=== PATIENT | male | born 1985 | race Caucasian/White ===

== ENCOUNTER 2020-12-27 08:27 | Emergency (ER) | payer OTHER, SELFPAY ==
[2020-12-27 08:34] VITALS: BP 154/100; PULSE 110; RESP 18; TEMP 36.6; O2SAT 97; BMI 38.7
--- NOTE | 2020-12-27 09:01 | ED.GENADULT ---
HPI - General Adult General Chief complaint: General Medical Stated complaint: medication refill Time Seen by Provider: 12/27/20 08:59 Source: patient Mode of arrival: ambulatory Limitations: no limitations History of Present Illness HPI narrative: 35-year-old on Suboxone here at a local sober house presents emergency department for refill of his Suboxone. He states he has not been the get for days. He denies cough fever chest pain nausea vomiting or diarrhea. Related Data Previous Rx's Medication Instructions Recorded buprenorphine 8 mg-naloxone 2 mg 1 film BUCCAL BID #5 ea 12/27/20 sublingual film (Suboxone) Allergies Allergy/AdvReac Type Severity Reaction Status Date / Time No Known Allergies Allergy Verified 12/27/20 09:17 Review of Systems Review of Systems: Review of systems: General: Patient denies any fever chills recent illness or falls Musculoskeletal: Denies back pain or body aches or other injuries HEENT: denies headache, runny nose, ear pain Respiratory: denies shortness of breath, cough Cardiovascular: no chest pain or palpitations : denies dysuria, frequency Abdomen: no nausea vomiting denies abdominal pain Extremities: no swelling, no pain Skin: no diaphoresis Yes all other systems are reviewed and are negative PMFSH Past Medical History Medical History (Updated 12/27/20 @ 09:29 by Cristian Ramírez DO) No known health problems Social History Social History Advance Directives: No Advance Directives Information Provided: No Physical Exam Vital Signs: Vital Signs: Last Vital Signs Temp 97.9 F 12/27/20 08:34 Pulse 110 H 12/27/20 08:34 Resp 18 12/27/20 08:34 BP 154/100 H 12/27/20 08:34 Pulse Ox 97 12/27/20 08:34 Body Mass Index 38.7 General: Well-appearing well-nourished in no signs of distress HEENT: Normocephalic atraumatic Neck: No signs of JVD, no masses no tenderness or lymphadenopathy Cardiovascular: Regular rate and rhythm Respiratory: Clear to auscultation bilaterally Abdomen: Soft nontender no masses. Extremities: Normal pedal pulses no signs of edema Skin: Dry warm no rashes Back: No tenderness full ROM Medical Decision Making MDM Narrative Medical decision making narrative: Will give him a dose of Suboxone here and sent home with 5 tabs. Discharge Plan Discharge Clinical Impression: Encounter for monitoring Suboxone maintenance therapy Patient Disposition: Home, Self-Care Additional Instructions: Please call to stab somebody to write for Suboxone. Prescriptions: New buprenorphine-naloxone [Suboxone] 8-2 mg film 1 film buccal BID Qty: 5 RF: 0
--- NOTE | 2020-12-27 09:37 | MHC.RECOVSUP ---
Recovery Support note: Patient is a 35 year old Vincentian speaking male who presented to [facility] ED requesting Suboxone. Patient reports his clinic is in fall and that he was supposed to get a prescription sent on Monday however it did not happen. Patient reports he has been in treatment for the past 4 months and has not been able to see his provider in person. Patient reports he currently resides at the [facility]. Patient was medicated with Suboxone while in the ED and discharged with a bridge script. Patient provided with information on the [facility] and local Suboxone clinics. Encouraged patient to call the [facility] tomorrow morning to schedule an appointment or to inquire on walk-in availability. Patient reports no questions or concerns at this time.
[2020-12-27] MEDS: Buprenorphine/Naloxone 8/2 mg FILM 1 FILM SUBLINGUAL (10:09)
== END 2020-12-27 10:14 | disposition home or self-care (01) ==
PROVIDERS: Emergency Provider Student in an Organized Health Care Education/Training Program
DX: Z76.0 Encounter for issue of repeat prescription (principal); Z79.891 Long term (current) use of opiate analgesic
CPT/HCPCS: 99283